=== PATIENT | female | born 1965 | race Caucasian/White ===

== ENCOUNTER 2022-02-09 15:45 | Emergency (ER) | payer BC ==
[~2022-02-09 15:45] MED LIST: METF-658 PO; METO100T7 PO; ROPI3TAB PO; SIMV40TA18 PO
--- NOTE | 2022-02-09 18:10 | PHYS DOC ---
Past History Past Medical History: Diabetes, Hypertension Past Surgical History: , Knee Replacement Smoking: Non-smoker Alcohol Use: None Drug Use: None Adult General Chief Complaint Chief Complaint: SYNCOPE Allergies Allergies Allergies Coded Allergies Type Severity Reaction Last Updated Verified Sulfa (Sulfonamide Antibiotics) Allergy Intermediate 12/07/13 Yes EKG EKG [] Radiology/Procedures Radiology/Procedures [] Heart Score C/O Chest Pain: No Risk Factors: Risk Factors: DM, Current or recent (<one month) smoker, HTN, HLP, family history of CAD, obesity. Risk Scores: Risk Factors: DM, Current or recent (<one month) smoker, HTN, HLP, family history of CAD, obesity. Course & Med Decision Making Course & Med Decision Making Patient was here during downtime and done on paper charts Dragon Disclaimer Dragon Disclaimer This electronic medical record was generated, in whole or in part, using a voice recognition dictation system. Departure Departure: Referrals: LISA CURIEL MD (PCP) REGINA ROJAS MD Feb 09, 2022 18:10
[2022-02-09] MEDS ORDERED: IOHEXOL 350 MG/ML 100 ML VIAL. IV ONE (18:15)
[2022-02-09] MEDS ORDERED: CONTRAST GIVEN. MC PRN (18:30)
[2022-02-09 19:36] LABS: CLARITY,URINE CLEAR; COLOR,URINE YELLOW; GLUCOSE,URINE >=1000 mg/dL (NEG); NITRITE,URINE NEG (NEG); UROBILINOGEN,URINE 0.2 mg/dL (0.2 mg/dL)
[2022-02-09 19:37] LABS: BACTERIA,URINE MOD /HPF (0-FEW); SQUAMOUS EPITHELIAL CELL,UR MOD /LPF; WBC,URINE 20-40 /HPF (0-4)
--- NOTE | 2022-02-10 02:37 | RAD ---
XR CHEST 1V Clinical History: Reason: SYNCOPE, PULMONARY HTN / Spl. Instructions: / History: Technique: AP view of the chest was obtained at 02/09/2022 3:57 PM. Comparison: None. Findings: The heart is moderately enlarged. The pulmonary vasculature is normal. The lungs and pleural margins are clear. Impression: Moderate cardiomegaly. Electronically signed by: Edgar George III, MD (02/09/2022 8:21 PM) [facility]
--- NOTE | 2022-02-10 02:37 | RAD ---
EXAMINATION: CT Pulmonary Angiogram with IV contrast INDICATION: Reason: SYNCOPE, PULMONARY HTN, PE PROTOCOL, OMNI 350, 100ml / Spl. Instructions: / Hist ory: COMPARISON: Same-day chest radiograph TECHNIQUE: Using helical technique, CT data from the thoracic inlet through the upper abdomen was obt ained during rapid IV contrast infusion. The examination was timed to the pulmonary arterial system t o generate a CT angiographic study. 3D MIPS, sagittal and coronal reformats were generated. FINDINGS: Vascular: The study is diagnostic to the level of the subsegmental pulmonary arteries. There is adequate opacif ication of pulmonary arteries. Pulmonary arteries: No evidence of acute or chronic pulmonary embolism. The pulmonary trunk is dilate d up to 3 cm. Thoracic aorta: Normal in size. Pulmonary veins: Normal drainage into the left atrium. Coronary arteries: Normal origins. Mild calcified coronary atherosclerosis. Systemic veins: Within normal limits. Heart: The heart is normal in size. No pericardial effusion. Chest: Lungs/Pleura: The pulmonary parenchyma appears within normal limits. No suspicious pulmonary nodules are visualized. No pleural effusion or focal pleural lesion. Mediastinum: No pathologic mediastinal or hilar adenopathy The visualized thyroid and the esophagus a re unremarkable Axilla/Soft Tissue: No supraclavicular or axillary adenopathy. Regional soft tissues are within darshan l limits. Upper abdomen: The visualized upper abdomen appears unremarkable. Bones: No evidence of acute fractures or aggressive osseous lesions. Thoracic DISH. IMPRESSION: Vascular: 1. No pulmonary embolism. 2. The pulmonary arterial trunk is dilated up to 3 cm this can be seen in setting of pulmonary arteri al hypertension. Chest: 1. No acute cardiopulmonary process. PRQS compliance statement - One or more of the following individualized dose reduction techniques wer e utilized for this study: 1. Automated exposure control 2. Adjustment of the mA and/or kV according to patient size 3. Use of iterative reconstruction technique Electronically signed by: Teddy Bal DO (02/09/2022 7:29 PM) [facility]
--- NOTE | 2022-02-10 02:38 | EKG ---
[address] [address] Test Date: 2022-02-09 Test Time: 18:58:35 Pat Name: KVNG ROSAS Department: Room: Gender: F Document Control Supervisor: JACQUELYN : 1965 Requested By: REGINA ROJAS Order Number: [id number] Reading MD: Geoff Feliciano MD Measurements Intervals [place] Rate: 64 P: 70 SD: 212 QRS: 106 QRSD: 96 T: -23 QT: 416 QTc: 433 Interpretive Statements SINUS RHYTHM CONSIDER INFERIOR ISCHEMIA Electronically Signed On 02-19-2022 10:02:57 CDT by Geoff Feliciano MD
[2022-02-10 03:04] LABS: ALBUMIN 3.7 g/dL (3.4-5.0); CALCIUM 8.9 mg/dL (8.5-10.1); GFR 25.8; TOTAL PROTEIN 7.4 g/dL (6.4-8.2)
[2022-02-10 03:05] LABS: DIRECT BILIRUBIN 0.1 mg/dL (0.0-0.2); POTASSIUM 4.5 mmol/L (3.5-5.1); TOTAL BILIRUBIN 0.3 mg/dL (0.2-1.0)
[2022-02-10 03:06] LABS: HEMOGLOBIN 15.6 g/dL (12.0-15.5); MEAN CORPUSCULAR HEMOGLOBIN 35 pg (25-35); MEAN CORPUSCULAR HGB CONC 33 g/dL (31-37); MEAN CORPUSCULAR VOLUME 106 fL (79-100); RED BLOOD COUNT 4.44 x10^6/uL (3.50-5.40); RED CELL DISTRIBUTION WIDTH 14.6 % (11.5-14.5)
[2022-02-10 03:07] LABS: BASO % 1 % (0-3); EOS # 0.1 x10^3/uL (0.0-0.7); EOS % 1 % (0-3); LYMPH # 1.1 x10^3/uL (1.0-4.8); LYMPH % 19 % (24-48); MONO # 0.4 x10^3/uL (0.0-1.1); MONO % 7 % (0-9); NEUT # 4.3 x10^3uL (1.8-7.7); NEUT % 72 % (31-73); PLATELET COUNT 139 x10^3/uL (140-400)
[2022-02-10 03:08] LABS: INFLUENZA A PATIENT NEGATIVE (NEGATIVE)
[2022-02-10 03:09] LABS: INFLUENZA B PATIENT NEGATIVE (NEGATIVE)
--- NOTE | 2022-02-10 05:56 | EKG ---
[address] [address] Test Date: 2022-02-09 Test Time: 15:24:38 Pat Name: KVNG ROSAS Department: Room: Gender: F Grocery Specialist: SABRINA : 1965 Requested By: REGINA ROJAS Order Number: [id number] Reading MD: Geoff Feliciano MD Measurements Intervals [place] Rate: 76 P: 62 ID: 202 QRS: 110 QRSD: 98 T: -14 QT: 404 QTc: 459 Interpretive Statements SINUS RHYTHM INFERIOR ISCHEMIA POSSIBLE NON-SPECIFIC ST/T CHANGES Electronically Signed On 02-19-2022 10:03:41 CDT by Geoff Feliciano MD
== END 2022-02-09 19:45 | disposition home or self-care (01) ==
LOC: ER 15:45
DX: R55 Syncope and collapse (principal); E11.9 Type 2 diabetes mellitus without complications; I10 Essential (primary) hypertension; Z20.822 Contact with and (suspected) exposure to COVID-19; Z88.2 Allergy status to sulfonamides
CPT/HCPCS: 36415; 71045; 71275; 80048; 80076; 81001; 84484; 85025; 85379; 87077; 87086; 87186; 87428; 93005; 99285; Q9967